=== PATIENT | female | born 2000 | race Caucasian/White ===

== ENCOUNTER 2022-04-29 07:41 | Emergency (ER) | payer MEDICAID ==
[~2022-04-29] VITALS: Ht 160 cm; Wt 65.0 kg
[2022-04-29] MEDS ORDERED: SODIUM CHLORIDE 0.9% 1,000 ML IV ONE (08:15)
[2022-04-29 08:27] LABS: BASOPHILS % 0.5 % (0.0-2.0); EOSINOPHILS % 3.7 % (0.0-5.0); HEMOGLOBIN. 11.7 g/dL (12.0-16.0); LYMPHOCYTES % 40.6 % (20.0-50.0); MEAN CORPUSCULAR HEMOGLOBIN 26.9 pg (28.0-32.0); MEAN CORPUSCULAR VOLUME 80.3 fL (81.0-99.0); MEAN PLATELET VOLUME 9.8 fl (7.4-10.4); MONOCYTES % 7.9 % (2.0-8.0); NEUTROPHILS % 47.3 % (40.0-76.0); PLATELET 185 x1000/uL (130-400); RED BLOOD CELL COUNT 4.36 mill/uL (4.2-5.4)
[2022-04-29 08:34] LABS: CHLORIDE 105 mEq/L (98-107)
[2022-04-29 08:35] LABS: INR 1.1; PROTHROMBIN TIME 11.4 sec (9.6-11.0)
[2022-04-29] MEDS ORDERED: ONDANSETRON HCL 4MG/2ML INJ IV STA (09:06)
[2022-04-29] MEDS ORDERED: ONDA4TAB50 PO (09:46)
[2022-04-29 10:01] VITALS: BP 110/70
== END 2022-04-29 10:07 | disposition home or self-care (01) ==
LOC: ER 07:41
DX: R11.2 Nausea with vomiting, unspecified (principal); F41.9 Anxiety disorder, unspecified
CPT/HCPCS: 36415; 80053; 81025; 85025; 85610; 96361; 96374; 99283; J2405; J7030